=== PATIENT | male | born 1940 | race Caucasian/White ===

== ENCOUNTER 2019-01-21 11:11 | Emergency (ER) | payer OTHER ==
[2019-01-21 11:41] LABS: Absolute Lymphocytes (CBC) 1.3 K/uL (0.7-4.9); Absolute Monocytes 0.5 K/uL (0.1-1.3); Absolute Neutrophil 4.1 K/uL (1.8-8.0); Basophils % 1.4 % (0-1.3); Eosinophils % 3.8 % (0-4.4); Hematocrit 37.3 % (39.6-49.0); Lymphocytes % 21.1 % (15.3-44.8); MPV 8.6 fL (7.6-11.3); Monocytes % 7.9 % (3.3-12.3); RBC Red Blood Cell Count 4.11 M/uL (4.33-5.43)
[2019-01-21 11:42] LABS: Protime INR 1.09
--- NOTE | 2019-01-21 11:45 | RAD REPORT ---
EXAM DESCRIPTION: Fabian Single View01/21/2019 11:34 am CLINICAL HISTORY: Chest pain COMPARISON: 2011 FINDINGS: Small opacity within the left lung base may represent a small area of atelectasis Otherwise, the lungs appear clear. The heart is borderline enlarged
[2019-01-21 11:59] LABS: ALT/SGPT 18 U/L (12-78); AST/SGOT 20 U/L (15-37); Albumin 3.5 g/dL (3.4-5.0); Alkaline Phosphatase 49 U/L (45-117); BUN Blood Urea Nitrogen 27 mg/dL (7-18); Bicarbonate 26 mmol/L (21-32); Bilirubin Direct 0.2 mg/dL (0-0.2); Bilirubin Total 0.4 mg/dL (0.2-1.0); Glucose Level 104 mg/dL (74-106); NT PRO-BNP 502 pg/mL (<450); Potassium 4.4 mmol/L (3.5-5.1); Protein, Total 6.8 g/dL (6.4-8.2); Sodium Level 142 mmol/L (136-145); Troponin (Emerg Dept Use Only) < 0.02 ng/mL (0.0-0.045)
[2019-01-21] MEDS ORDERED: NA CHLORIDE 0.9% 1,000 ML ONE (12:19)
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
--- NOTE | 2019-01-21 13:38 | EDPHYS ---
Physician Documentation [facility] Name: Lambert Salvador Age: 78 yrs Sex: Male : 1940 Arrival Date: 01/21/2019 Time: 11:12 Bed 2 Private MD: Ed Feldman R ED Physician Jonathan Calvert HPI: 01/21 12:01 This 78 yrs old Male presents to ER via Ambulatory with complaints of Chest jr8 Pain. 12:01 The patient or guardian reports chest pain that is located primarily in the substernal jr8 area. Onset: acutely, today. The pain does not radiate. Associated signs and symptoms: Pertinent positives: dizziness, shortness of breath. The chest pain is described as a pressure. Duration: The patient or guardian reports a single episode, that lasted 5 second(s). Modifying factors: The symptoms are alleviated by nothing. the symptoms are aggravated by nothing. Severity of pain: At its worst the pain was moderate in the emergency department the pain has resolved. The patient has not experienced similar symptoms in the past. The patient has not recently seen a physician. Patient stated that while getting up from chair to go to kitchen, had sudden intense chest pressure that knocked him to the ground. Denies LOC. Stated that he became short of breath and dizzy. All symptoms now resolved. Stated that for the last several weeks noticed while walking that he feels very weak and has to rest . Historical: - Allergies: 11:25 Iodinated Contrast- Oral and IV Dye; hj 11:25 shellfish derived; hj - PMHx: 11:25 Hypertension; Diabetes - NIDDM; Hyperlipidemia; hj - PSHx: 11:25 Unable to obtain; hj - Immunization history:: Adult Immunizations up to date. - Social history:: Smoking status: Patient/guardian denies using tobacco. ROS: 12:01 Eyes: Negative for injury, pain, redness, and discharge, ENT: Negative for injury, jr8 pain, and discharge, Neck: Negative for injury, pain, and swelling, Abdomen/GI: Negative for abdominal pain, nausea, vomiting, diarrhea, and constipation, Back: Negative for injury and pain, MS/Extremity: Negative for injury and deformity, Skin: Negative for injury, rash, and discoloration. 12:01 Cardiovascular: Positive for chest pain, Negative for edema, orthopnea, palpitations, paroxysmal nocturnal dyspnea. 12:01 Respiratory: Positive for shortness of breath, Negative for cough, dyspnea on exertion, sputum production, wheezing. 12:01 Neuro: Positive for dizziness, weakness, Negative for gait disturbance, headache, numbness, speech changes, syncope, near syncope, tingling, visual changes. Exam: 12:01 Eyes: Pupils equal round and reactive to light, extra-ocular motions intact. Lids and jr8 lashes normal. Conjunctiva and sclera are non-icteric and not injected. Cornea within normal limits. Periorbital areas with no swelling, redness, or edema. ENT: Nares patent. No nasal discharge, no septal abnormalities noted. Tympanic membranes are normal and external auditory canals are clear. Oropharynx with no redness, swelling, or masses, exudates, or evidence of obstruction, uvula midline. Mucous membranes moist. Neck: Trachea midline, no thyromegaly or masses palpated, and no cervical lymphadenopathy. Supple, full range of motion without nuchal rigidity, or vertebral point tenderness. No Meningismus. Cardiovascular: Regular rate and rhythm with a normal S1 and S2. No gallops, murmurs, or rubs. Normal PMI, no JVD. No pulse deficits. Respiratory: Lungs have equal breath sounds bilaterally, clear to auscultation and percussion. No rales, rhonchi or wheezes noted. No increased work of breathing, no retractions or nasal flaring. Abdomen/GI: Soft, non-tender, with normal bowel sounds. No distension or tympany. No guarding or rebound. No evidence of tenderness throughout. Back: No spinal tenderness. No costovertebral tenderness. Full range of motion. Skin: Warm, dry with normal turgor. Normal color with no rashes, no lesions, and no evidence of cellulitis. MS/ Extremity: Pulses equal, no cyanosis. Neurovascular intact. Full, normal range of motion. Neuro: Awake and alert, GCS 15, oriented to person, place, time, and situation. Cranial nerves II-XII grossly intact. Motor strength 5/5 in all extremities. Sensory grossly intact. Cerebellar exam normal. Normal gait. 12:01 ECG was reviewed by the Attending Physician. Vital Signs: 11:25 Pulse 53; Resp 18; Temp 97.8(TE); Pulse Ox 98% on R/A; Weight 99.79 kg; Height 5 ft. 8 hj in. (172.72 cm); Pain 8/10; 11:34 BP 162 / 72; ss 11:34 BP 153 / 66 Sitting; Pulse 52; ss 11:34 BP 117 / 57 Standing; Pulse 52; ss 12:53 BP 106 / 58; Pulse 51; Resp 16; Pulse Ox 100% on R/A; Pain 0/10; ss 13:39 BP 170 / 59 Supine; Pulse 54; Resp 12; Pulse Ox 100% ; ms 13:39 BP 154 / 57 Standing; Pulse 52; Resp 16; Pulse Ox 98% on R/A; ms 11:25 Body Mass Index 33.45 (99.79 kg, 172.72 cm) hj [place] Coma Score: 11:34 Eye Response: spontaneous(4). Verbal Response: oriented(5). Motor Response: obeys ss commands(6). Total: 15. MDM: 11:15 Patient medically screened. jr8 13:36 Data reviewed: vital signs, nurses notes, lab test result(s), EKG, radiologic studies, jr8 plain films. Data interpreted: Pulse oximetry: on room air is 100 %. Interpretation: normal. Counseling: I had a detailed discussion with the patient and/or guardian regarding: the historical points, exam findings, and any diagnostic results supporting the discharge/admit diagnosis, lab results, radiology results, the need for outpatient follow up, a family practitioner, to return to the emergency department if symptoms worsen or persist or if there are any questions or concerns that arise at home. ED course: Discussed with patient that there are no findings on labs, imaging, and ECG to suggest acute cardiac episode. Compared his renal function labs to ones in past. Slightly worse but not acute for him. Recommend discontinuing his Metformin as this can worsen renal function at this level. 01/21 11:15 Order name: Basic Metabolic Panel; Complete Time: 12: 01/21 11:15 Order name: CBC with Diff; Complete Time: 12:23 01/21 11:15 Order name: LFT's; Complete Time: 12:00 01/21 11:15 Order name: Magnesium; Complete Time: 12:00 01/21 11:15 Order name: NT PRO-BNP; Complete Time: 12:00 01/21 11:15 Order name: PT-INR; Complete Time: 12:23 01/21 11:15 Order name: Troponin (emerg Dept Use Only); Complete Time: 12:00 01/21 11:15 Order name: XRAY Chest (1 view); Complete Time: 11:58 01/21 11:15 Order name: EKG; Complete Time: 11:16 01/21 11:15 Order name: Cardiac monitoring; Complete Time: :01/21 11:15 Order name: EKG - Nurse/Tech; Complete Time: :01/21 11:15 Order name: IV Saline Lock; Complete Time: 01/21 11:15 Order name: Labs collected and sent; Complete Time: 01/21 11:15 Order name: O2 Per Protocol; Complete Time: 01/21 11:15 Order name: O2 Sat Monitoring; Complete Time: EC:01 Rate is 51 beats/min. Rhythm is regular, 1st Degree Block. QRS [place] is Normal. [place] jr8 interval is prolonged at 296 msec. QRS interval is normal at 92 msec. QT interval is normal at 394 msec. Q waves are Present in leads V1, V2, V3. T waves are Normal. No ST changes noted. Clinical impression: 1st degree heart block. Interpreted by me. Reviewed by me. Administered Medications: 12:10 Drug: NS 0.9% 1000 ml Route: IV; Rate: 1000 ml; Site: right antecubital; ss 13:40 Follow up: IV Status: Completed infusion; IV Intake: 1000ml ss Disposition: 17:14 Co-signature as Attending Physician, Jonathan Calvert MD. ma2 Disposition: 01/21/19 13:37 Discharged to Home. Impression: Chest pain, unspecified. - Condition is Stable. - Discharge Instructions: Nonspecific Chest Pain. - Medication Reconciliation Form, Thank You Letter, Antibiotic Education, Prescription Opioid Use form. - Follow up: Ed Feldman MD; When: 2 - 3 days; Reason: Recheck today's complaints, Continuance of care, Re-evaluation by your physician. - Problem is new. - Symptoms have improved. - Notes: General Recommendation that patient discontinue Metformin and start on another type of oral diabetic medication due to patients renal function being above 1.50 Signatures: Dispatcher [employer] EDMS Michelle Mann RN RN ss Roszak, Josh, PA PA jr8 Jose A Palacios RN RN Jonathan Calvert MD MD ma2 Corrections: (The following items were deleted from the chart) 12:03 12:01 Neuro: Positive for dizziness, weakness, jr8 jr8 13:41 13:37 01/21/2019 13:37 Discharged to Home. Impression: Chest pain, unspecified. ss Condition is Stable. Forms are Medication Reconciliation Form, Thank You Letter, Antibiotic Education, Prescription Opioid Use. Follow up: Ed Feldman; When: 2 - 3 days; Reason: Recheck today's complaints, Continuance of care, Re-evaluation by your physician. Problem is new. Symptoms have improved. jr8
[2019-01-21 14:07] VITALS: TEMP 97.8
[2019-01-21 14:13] VITALS: BP 154/57; O2SAT 98
--- NOTE | 2019-01-22 10:31 | EKG ---
Test Date: 2019-01-21 Test Time: 11:22:24 Health And Social Care Teacher: BARBARA MEASUREMENT RESULTS: Intervals: Rate: 51 AK: 296 QRSD: 92 QT: 428 QTc: 394 [place]: P: 82 AK: 296 QRS: 42 T: 58 INTERPRETIVE STATEMENTS: Sinus bradycardia with 1st degree AV block Cannot rule out Anterior infarct, age undetermined Abnormal ECG Compared to ECG 04/10/2015 13:40:22 First degree AV block now present Myocardial infarct finding now present Accelerated junctional rhythm no longer present Electronically Signed On 01-22-19 10:28:30 CDT by Geo Han
== END 2019-01-21 13:41 | disposition home or self-care (01) ==
LOC: ER 11:11
DX: R07.9 Chest pain, unspecified (principal); Z91.013 Allergy to seafood; Z91.09 Other allergy status, other than to drugs and biological substances
CPT/HCPCS: 93005; 85025; 80048; 36415; 83735; 85610; 80076; 84484; 83880; 71045; 96360; 99285; J7030

== ENCOUNTER 2021-04-07 21:18 | Emergency (ER) | payer OTHER ==
--- OUTSIDE RECORDS SUMMARY | 2021-04-07 21:21 | XMS REPORT | Continuity of Care Document ---
:1940 Author Organization [facility] t Address [address] [place] [address] Care Team Providers Name Role Phone Rachel GONZALEZ, T Attending Clinician Unavailable Only, Test Attending Clinician Unavailable Problems This patient has no known problems. Allergies, Adverse Reactions, Alerts This patient has no known allergies or adverse reactions. Medications This patient has no known medications. Procedures This patient has no known procedures. Encounters Start End Encounter Admission Attending Care Care Encounter Source Date/Time Date/Time Type Type Clinicians Facility Department ID 2020-05-30 2020-05-30 Letter DENISE Ramos [id number] 00:00:00 00:00:00 (Out) Lori HALE [id number] [facility] [id number] 2020-05-29 2020-05-29 Laboratory Only, [facility] [id number] 14:12:26 14:25:21 Only Test [place] [id number] [place] [id number] [place] [id number] Results This patient has no known results.
[2021-04-07 21:38] LABS: Urine Blood 3+ (Negative); Urine Glucose Negative (Negative); Urine Protein Negative (Negative); Urine pH 5.5 (5.0-7.0)
[2021-04-07 22:03] LABS: Absolute Lymphocytes (CBC) 1.9 K/uL (0.7-4.9); Basophils % 0.6 % (0-1.3); Hematocrit 36.2 % (39.6-49.0); Lymphocytes % 25.1 % (15.3-44.8); MPV 8.8 fL (7.6-11.3); RBC Red Blood Cell Count 4.01 M/uL (4.33-5.43)
[2021-04-07] MEDS ORDERED: ONDANSETRON 4 MG/2 ML VIAL ONE (22:08)
[2021-04-07] MEDS ORDERED: MORPHINE 4 MG/ML SYR ONE ×2 (22:08→23:05)
[2021-04-07 22:12] LABS: Albumin 3.1 g/dL (3.4-5.0); Bilirubin Direct 0.2 mg/dL (0-0.2); Bilirubin Total 0.5 mg/dL (0.2-1.0); Protein, Total 6.3 g/dL (6.4-8.2)
[2021-04-07 22:16] LABS: Urine Bacteria <20 /HPF (NONE SEEN); Urine RBC 20-50 /HPF (NONE SEEN)
--- NOTE | 2021-04-08 00:16 | ER ---
Nurse's Notes [facility] Name: Lambert Salvador Age: 80 yrs Sex: Male : 1940 Arrival Date: 04/07/2021 Time: 21:22 Bed 18 Private MD: Ed Feldman R Diagnosis: Calculus of ureter Presentation: 04/07 21:27 Chief complaint: Patient states: R flank pain started Thursday. Reports urinary urgency ca1 and frequency. Denies HX of kidney stones. Coronavirus screen: Client denies travel out of the [place] in the last 14 days. At this time, the client does not indicate any symptoms associated with coronavirus-19. Ebola Screen: Patient negative for fever greater than or equal to 101.5 degrees Fahrenheit, and additional compatible Ebola Virus Disease symptoms Patient denies exposure to infectious person. Patient denies travel to an Ebola-affected area in the 21 days before illness onset. No symptoms or risks identified at this time. Initial Sepsis Screen: Does the patient meet any 2 criteria? No. Patient's initial sepsis screen is negative. Does the patient have a suspected source of infection? No. Patient's initial sepsis screen is negative. Risk Assessment: Do you want to hurt yourself or someone else? Patient reports no desire to harm self or others. Onset of symptoms was April 05, 2021. 21:27 Method Of Arrival: Ambulatory ca1 21:27 Acuity: KOMAL 3 ca1 Triage Assessment: 04/08 00:36 General: Behavior is calm, cooperative. ak2 Historical: - Allergies: 04/07 21:29 Iodinated Contrast- Oral and IV Dye; ca1 21:29 shellfish derived; ca1 - PMHx: 21:29 Diabetes - NIDDM; Hyperlipidemia; Hypertension; ca1 - Immunization history:: Client reports having NOT received the Covid vaccine. Flu vaccine is up to date. - Social history:: Smoking status: Patient denies any tobacco usage or history of. Screenin:18 Abuse screen: Denies threats or abuse. Denies injuries from another. Nutritional ak2 screening: No deficits noted. Tuberculosis screening: No symptoms or risk factors identified. Fall Risk None identified. Assessment: 23:18 General: Appears in no apparent distress. Pain: Complains of pain in back. Neuro: No ak2 deficits noted. Cardiovascular: No deficits noted. Respiratory: No deficits noted. Vital Signs: 21:27 BP 185 / 65; Pulse 57; Resp 18 S; Temp 97.5(TE); Pulse Ox 98% on R/A; Weight 88.45 kg ca1 (R); Height 5 ft. 8 in. (172.72 cm) (R); Pain 8/10; 23:19 BP 153 / 71; Pulse 65; Resp 18; Pulse Ox 99% on R/A; ak2 21:27 Body Mass Index 29.65 (88.45 kg, 172.72 cm) ca1 ED Course: 21:22 Patient arrived in ED. es 21:22 Ed Feldman MD is Private Physician. es 21:28 Triage completed. ca1 21:29 Juan Pablo Carmichael is Primary Nurse. ak2 21:29 Arm band placed on right wrist. ca1 21:38 Rich Alexandra NP is PHCP. pm1 21:38 Jose F Guadalupe MD is Attending Physician. pm1 22:08 CT Stone Protocol In Process Unspecified. EDMS 23:18 Patient has correct armband on for positive identification. ak2 23:19 No provider procedures requiring assistance completed. Inserted saline lock: 18 gauge ak2 in right forearm, using aseptic technique. 07 00:37 IV discontinued. ak2 Administered Medications: 04/07 21:50 Drug: NS 0.9% 500 ml Route: IV; Rate: bolus; Site: right antecubital; ak2 21:50 Drug: morphine 4 mg Route: IVP; Site: right antecubital; ak2 21:52 Follow up: Response: Pain is decreased ak2 21:50 Drug: Zofran (Ondansetron) 4 mg Route: IVP; Site: right antecubital; ak2 21:52 Follow up: Response: Nausea is decreased ak2 22:45 Drug: morphine 4 mg Route: IVP; Site: right antecubital; ak2 04/08 00:21 Drug: morphine 2 mg Route: IVP; Site: right antecubital; ak2 00:21 Drug: Flomax (tamsulosin) 0.4 mg Route: PO; ak2 Outcome: 00:16 Discharge ordered by . pm1 00:37 Discharged to home ambulatory, with family. ak2 00:37 Condition: good 00:37 Condition: good 00:37 Discharge instructions given to patient, family, Prescriptions given X 00:37 Patient left the ED. ak2 Signatures: Dispatcher [employer] Venecia Yusuf Patrick, NP COLLET DRILLER pm1 Rubi Valero RN RN ca1 Juan Pablo Carmichael ak2
--- NOTE | 2021-04-08 00:17 | EDPHYS ---
Physician Documentation [facility] Name: Lambert Salvador Age: 80 yrs Sex: Male : 1940 Arrival Date: 04/07/2021 Time: 21:22 Bed 18 Private MD: Ed Feldman R ED Physician Jose F Guadalupe HPI: 04/07 21:49 This 80 yrs old Male presents to ER via Ambulatory with complaints of Flank pm1 Pain. 21:49 The patient complains of pain in the right low back. The pain radiates to the right pm1 femoral area. Onset: The symptoms/episode began/occurred 2 day(s) ago. Modifying factors: The symptoms are alleviated by nothing. the symptoms are aggravated by nothing. Associated signs and symptoms: Pertinent negatives: diarrhea, dysuria, fever, nausea, vomiting. Severity of pain: in the emergency department the pain is unchanged. The patient has not experienced similar symptoms in the past. The patient has not recently seen a physician. Historical: - Allergies: 21:29 Iodinated Contrast- Oral and IV Dye; ca1 21:29 shellfish derived; ca1 - PMHx: 21:29 Diabetes - NIDDM; Hyperlipidemia; Hypertension; ca1 - Immunization history:: Client reports having NOT received the Covid vaccine. Flu vaccine is up to date. - Social history:: Smoking status: Patient denies any tobacco usage or history of. ROS: 21:49 Constitutional: Negative for fever, chills, and weight loss. pm1 21:49 Cardiovascular: Negative for chest pain, palpitations, and edema, Respiratory: Negative for shortness of breath, cough, wheezing, and pleuritic chest pain, Abdomen/GI: Negative for abdominal pain, nausea, vomiting, diarrhea, and constipation. 21:49 : Negative for injury, bleeding, discharge, and swelling, MS/Extremity: Negative for injury and deformity, Skin: Negative for injury, rash, and discoloration, Neuro: Negative for headache, weakness, numbness, tingling, and seizure. 21:49 Back: Positive for flank pain, on the right. 21:49 All other systems are negative. Exam: 21:49 Constitutional: This is a well developed, well nourished patient who is awake, alert, pm1 and in no acute distress. Head/Face: Normocephalic, atraumatic. 21:49 Abdomen/GI: Soft, non-tender, with normal bowel sounds. No distension or tympany. No guarding or rebound. No evidence of tenderness throughout. 21:49 Skin: Warm, dry with normal turgor. Normal color with no rashes, no lesions, and no evidence of cellulitis. MS/ Extremity: Pulses equal, no cyanosis. Neurovascular intact. Full, normal range of motion. 21:49 Eyes: Exam is negative for acute changes, Extraocular movements: no acute changes, Conjunctiva: no acute changes, no injection. 21:49 ENT: Mouth: Lips: normal, Oral mucosa: normal, pink and intact, moist. 21:49 Cardiovascular: Rate: normal, Rhythm: regular, Pulses: no pulse deficits are appreciated. 21:49 Respiratory: Exam negative for acute changes, respiratory distress, shortness of breath. 21:49 Back: CVA tenderness, that is mild, is noted on the right. 21:49 Neuro: Exam negative for acute changes, Orientation: is normal, Mentation: is normal, Motor: is normal, moves all fours. Vital Signs: 21:27 BP 185 / 65; Pulse 57; Resp 18 S; Temp 97.5(TE); Pulse Ox 98% on R/A; Weight 88.45 kg ca1 (R); Height 5 ft. 8 in. (172.72 cm) (R); Pain 8/10; 23:19 BP 153 / 71; Pulse 65; Resp 18; Pulse Ox 99% on R/A; ak2 21:27 Body Mass Index 29.65 (88.45 kg, 172.72 cm) ca1 MDM: 21:39 Patient medically screened. pm1 04/08 00:14 Data reviewed: vital signs. Data interpreted: Pulse oximetry: on room air is 99 %. pm1 Interpretation: normal. 00:14 Counseling: I had a detailed discussion with the patient and/or guardian regarding: the pm1 historical points, exam findings, and any diagnostic results supporting the discharge/admit diagnosis, lab results, radiology results, the need for outpatient follow up, a urologist, to return to the emergency department if symptoms worsen or persist or if there are any questions or concerns that arise at home. 04/07 21:38 Order name: Urine Dipstick-Ancillary; Complete Time: 21:43 EDMS 04/07 21:38 Order name: Urine Microscopic Only; Complete Time: 22:34 pm1 04/07 21:39 Order name: Basic Metabolic Panel pm1 04/07 21:39 Order name: CBC with Diff; Complete Time: 22:42 pm1 04/07 21:39 Order name: Hepatic Function; Complete Time: 22:42 pm1 04/07 21:39 Order name: Lipase; Complete Time: 22:42 pm1 04/07 21:39 Order name: CT Stone Protocol pm1 04/07 21:40 Order name: Basic Metabolic Panel; Complete Time: 22:42 EDMS 04/07 21:39 Order name: IV Saline Lock pm1 04/07 21:39 Order name: Labs collected and sent pm1 Administered Medications: 04/07 21:50 Drug: NS 0.9% 500 ml Route: IV; Rate: bolus; Site: right antecubital; ak2 21:50 Drug: morphine 4 mg Route: IVP; Site: right antecubital; ak2 21:52 Follow up: Response: Pain is decreased ak2 21:50 Drug: Zofran (Ondansetron) 4 mg Route: IVP; Site: right antecubital; ak2 21:52 Follow up: Response: Nausea is decreased ak2 22:45 Drug: morphine 4 mg Route: IVP; Site: right antecubital; ak2 04/08 00:21 Drug: morphine 2 mg Route: IVP; Site: right antecubital; ak2 00:21 Drug: Flomax (tamsulosin) 0.4 mg Route: PO; ak2 Disposition: 06:08 Co-signature as Attending Physician, Jose F Guadalupe MD. [email or web address] Disposition Summary: 04/08/21 00:16 Discharge Ordered Location: Home pm1 Problem: new pm1 Symptoms: have improved pm1 Condition: Stable pm1 Diagnosis - Calculus of ureter pm1 Followup: pm1 - With: Emergency Department - When: As needed - Reason: Worsening of condition Followup: pm1 - With: Private Physician - When: 2 - 3 days - Reason: Recheck today's complaints, Continuance of care, Re-evaluation by your physician Discharge Instructions: - Discharge Summary Sheet pm1 - Kidney Stones pm1 - Dietary Guidelines to Help Prevent Kidney Stones pm1 Forms: - Medication Reconciliation Form pm1 - Thank You Letter pm1 - Antibiotic Education pm1 - Prescription Opioid Use pm1 Prescriptions: - Tramadol 50 mg Oral Tablet - take 1 tablet by ORAL route every 8 hours as needed; 12 tablet; Refills: 0, pm1 Product Selection Permitted - Flomax 0.4 mg Oral capsule - take 1 capsule by ORAL route once daily for 10 days 1/2 hour following the same pm1 meal each day; 10 capsule; Refills: 0, Product Selection Permitted Signatures: Dispatcher [employer] EDSamir Love, JUSTIN-C SKEIN SPOOLER-Cla1 Rich Alexandra, DEBI RISK OFFICER pm1 Rubi Valero RN RN ca1 Jose F Guadalupe MD MD [facility] Juan Pablo Carmichael la2
[2021-04-08] MEDS ORDERED: MORPHINE 2 MG/ML SYR ONE (00:36)
[2021-04-08] MEDS ORDERED: TAMSULOSIN 0.4 MG SR CAP ONE (00:36)
[2021-04-08 00:53] VITALS: TEMP 97.5
[2021-04-08 00:54] VITALS: BP 153/71; O2SAT 99
--- NOTE | 2021-04-08 12:16 | RAD REPORT ---
EXAM DESCRIPTION: CT ABDOMEN AND PELVIS WITHOUT CONTRAST CLINICAL HISTORY: FLANK PAIN COMPARISON: None Available. TECHNIQUE: CT of the abdomen and pelvis without IV contrast. Evaluation of the solid organs and vasc ulature is suboptimal due to lack of IV contrast. This exam was performed according to our department al dose-optimization program, which includes automated exposure control, adjustment of the mA and/or kV according to patient size and/or use of iterative reconstruction technique. FINDINGS: Lung Bases: The visualized lung bases are clear. Coronary artery atherosclerosis. Bones: Multilevel endplate spondylosis and facet arthropathy. Chronic appearing compression deformity of L1. Abdomen: Liver: The liver has normal size and density. Gallbladder: Prior cholecystectomy. Spleen, Pancreas, and Adrenal Glands: The spleen, pancreas, and adrenal glands are unremarkable. Kidneys: There is a 0.3 cm obstructing calculus in the distal right ureter producing mild right hydro ureter and hydronephrosis. 4.0 cm inferior pole right renal cyst. Vasculature: Aortoiliac atherosclerosis. IVC is unremarkable. Stomach: The stomach and duodenum have normal course. Other: No free intraperitoneal air. No free fluid or lymphadenopathy. Pelvis: Bladder: Urinary bladder is unremarkable. Bowel: No dilated loops of large or small bowel. Scattered diverticula of the colon. Appendix: Normal appendix. Pelvis: Prostate is not enlarged. IMPRESSION: 1. There is a 0.3 cm obstructing calculus in the distal right ureter producing mild ri ght hydroureter and hydronephrosis. 2. Diverticulosis without evidence of acute diverticulitis. Electronically signed by: Lamine Patiño 04/07/2021 10:41 PM CDT Due to temporary technical issues with the PACS/Fluency reporting system, reports are being signed by the in house radiologist without review as a courtesy to ensure prompt reporting. The interpreting r adiologist is fully responsible for the content of the report.
== END 2021-04-08 00:37 | disposition home or self-care (01) ==
LOC: ER 21:18
DX: N20.1 Calculus of ureter (principal); I10 Essential (primary) hypertension; Z91.013 Allergy to seafood; Z91.041 Radiographic dye allergy status
CPT/HCPCS: 85025; 80048; 36415; 80076; 83690; 76377; 74176; 96375; 96374; 99284; J2270; J2405; 81003; 81015

== ENCOUNTER 2021-09-24 22:07 | Emergency (ER) | payer OTHER ==
--- OUTSIDE RECORDS SUMMARY | 2021-09-24 22:10 | XMS REPORT | Continuity of Care Document ---
:1940 Author Organization [facility] t Address [address] [place] [address] Care Team Providers Name Role Phone Rachel GONZALEZ, T Attending Clinician Unavailable ALAYNA Attending Clinician Unavailable Only, Test Attending Clinician Unavailable Alayna SMITH Attending Clinician Doctor Unassigned, Name Attending Clinician Unavailable Payers Payer Name Policy Type Policy Number Effective Date Expiration Date S ource Problems Condition Condition Condition Status Onset Resolution Last Treating Co mments Source Name Details Category Date Date Treatment Clinician Date Chest pain Chest pain Disease Active U nivers 10-05 ity of 00:00: [place] 00 [facility] Allergies, Adverse Reactions, Alerts Allergy Allergy Status Severity Reaction(s) Onset Inactive Treating Comm ents Source Name Type Date Date Clinician Iodine Propensi Active Rash Univers ty to 3 ity of adverse 00:00: [place] reaction 00 Medical s to Branch drug Penicill Propensi Active Rash Univer s ins ty to 11-26 ity of adverse 00:00: [place] reaction 00 Medical s to Branch drug IODINE DRUG Active Med Rash Univers INGREDI 3- ity of 00:00: [place] 00 Medical Branch PENICILL Drug Active Med Rash Univers INS Class 3- ity of 00:00: [place] 00 Medical [place] Social History Social Habit Start Date Stop Date Quantity Comments Source Sex Assigned At Universit y of [facility] Exposure to Not sure University of SARS-CoV-2 [facility] (event) Branch Tobacco use and 2017-10-05 2017-10-05 Never used Universit y of exposure 00:00:00 00:00:00 [facility] Alcohol intake 2017-10-05 2017-10-05 Current University of 00:00:00 00:00:[address] non-drinker of [facility] alcohol Branch (finding) Smoking Status Start Date Stop Date Source Never smoker [facility] Medical Branch Medications Ordered Filled Start Stop Current Ordering Indication Dosage Frequency Signature Comments Components Source Medication Medication Date Date Medication? Clinician (SIG) Name Name gemfibrozil Yes 600mg Take 600 U nivers (LOPID) 600 1-09 mg by ity of mg tablet 22:46: mouth 2 [place] [address] (two) Medical times Branch daily. simvastatin Yes 10mg Take 10 mg Univers (ZOCOR) 10 1-09 by mouth ity o f mg tablet 22:46: daily. [place] [address] Medical Branch metformin Yes 500mg Take 500 Uni vers ER 1-09 mg by ity of (GLUCOPHAGE 22:46: mouth [place] -XR) 500 mg 37 daily. Medica l 24 hr Branch tablet metoprolol Yes 25mg Take 25 mg U nivers succinate 1-09 by mouth ity of XL (TOPROL 22:46: daily. [place] XL) 25 mg 37 Medical 24 hr Branch tablet aspirin 81 Yes 81mg Take 81 mg U nivers mg EC 1-09 by mouth ity of tablet 22:46: daily. [address] Branch LORazepam Yes 1mg Take 1 mg Uni vers (ATIVAN) 1 1-09 by mouth 3 ity of mg tablet 22:46: (three) [place] [address] times Medical daily. Branch buPROPion Yes 300mg Take 300 Uni vers XL 1-09 mg by ity of (WELLBUTRIN 22:46: mouth [place] XL) 300 mg 37 daily. Medical 24 hr Branch tablet fenofibrate Yes 145mg Take 145 U nivers 145 mg 1-09 mg by ity of tablet 22:46: mouth [place] 37 daily. Medical Branch meclizine Yes 32mg Take 32 mg Un zuri 25 mg 1-09 by mouth ity of tablet 22:46: daily. [address] Branch tamsulosin Yes .4mg Take 0.4 Uni vers 0.4 mg 24 1-09 mg by ity of hr capsule 22:46: mouth [place] 37 daily. Medical Branch gemfibrozil Yes 600mg Take 600 U nivers (LOPID) 600 1-09 mg by ity of mg tablet 22:46: mouth 2 [place] [address] (two) Medical times Branch daily. simvastatin 2018-0 Yes 10mg Take 10 mg Univers (ZOCOR) 10 1-09 by mouth ity o f mg tablet 22:46: daily. [place] [address] Medical Branch metformin 2018-0 Yes 500mg Take 500 Uni vers ER 1-09 mg by ity of (GLUCOPHAGE 22:46: mouth [place] -XR) 500 mg 37 daily. Medica l 24 hr Branch tablet metoprolol 2018-0 Yes 25mg Take 25 mg U nivers succinate 1-09 by mouth ity of XL (TOPROL 22:46: daily. [place] XL) 25 mg 37 Medical 24 hr Branch tablet aspirin 81 2018-0 Yes 81mg Take 81 mg U nivers mg EC 1-09 by mouth ity of tablet 22:46: daily. [place] [address] Medical Branch LORazepam 2017-0 Yes 1mg Take 1 mg Uni vers (ATIVAN) 1 1-09 by mouth 3 ity of mg tablet 22:46: (three) [place] [address] times [facility] daily. Branch buPROPion 0 Yes 300mg Take 300 Uni vers XL 1-09 mg by ity of (WELLBUTRIN 22:46: mouth [place] XL) 300 mg 37 daily. Medical 24 hr Branch tablet fenofibrate 2017-0 Yes 145mg Take 145 U nivers 145 mg 1-09 mg by ity of tablet 22:46: mouth [place] daily. Medical Branch meclizine 0 Yes 32mg Take 32 mg Un zuri 25 mg 1-09 by mouth ity of tablet 22:46: daily. [address] Branch tamsulosin 2018-0 Yes .4mg Take 0.4 Uni vers 0.4 mg 24 1-09 mg by ity of hr capsule 22:46: mouth [place] daily. Medical Branch gemfibrozil 2018-0 Yes 600mg Take 600 U nivers (LOPID) 600 1-09 mg by ity of mg tablet 22:46: mouth 2 [place] [address] (two) Medical times [place] daily. simvastatin 2018-0 Yes 10mg Take 10 mg Univers (ZOCOR) 10 1-09 by mouth ity o f mg tablet 22:46: daily. [address] Branch metformin 2017-0 Yes 500mg Take 500 Uni vers ER 1-09 mg by ity of (GLUCOPHAGE 22:46: mouth [place] -XR) 500 mg 37 daily. Medica l 24 hr Branch tablet metoprolol 2018-0 Yes 25mg Take 25 mg U nivers succinate 1-09 by mouth ity of XL (TOPROL 22:46: daily. [place] XL) 25 mg 37 Medical 24 hr Branch tablet aspirin 81 2017-0 Yes 81mg Take 81 mg U nivers mg EC 1-09 by mouth ity of tablet 22:46: daily. [place] [address] Medical Branch LORazepam 2018-0 Yes 1mg Take 1 mg Uni vers (ATIVAN) 1 1-09 by mouth 3 ity of mg tablet 22:46: (three) [place] 37 times Medical daily. Branch buPROPion 0 Yes 300mg Take 300 Uni vers XL 1-09 mg by ity of (WELLBUTRIN 22:46: mouth [place] XL) 300 mg 37 daily. Medical 24 hr Branch tablet fenofibrate 0 Yes 145mg Take 145 U nivers 145 mg 1-09 mg by ity of tablet 22:46: mouth [place] 37 daily. Medical Branch meclizine Yes 32mg Take 32 mg Un zuri 25 mg 1-09 by mouth ity of tablet 22:46: daily. [place] [address] Medical Branch tamsulosin 2017-0 Yes .4mg Take 0.4 Uni vers 0.4 mg 24 1-09 mg by ity of hr capsule 22:46: mouth [place] 37 daily. Medical Branch gemfibrozil 0 Yes 600mg Take 600 U nivers (LOPID) 600 1-09 mg by ity of mg tablet 22:46: mouth 2 [place] [address] (two) Medical times Branch daily. simvastatin 2018-0 Yes 10mg Take 10 mg Univers (ZOCOR) 10 1-09 by mouth ity o f mg tablet 22:46: daily. [place] [address] Medical Branch metformin 2018-0 Yes 500mg Take 500 Uni vers ER 1-09 mg by ity of (GLUCOPHAGE 22:46: mouth [place] -XR) 500 mg 37 daily. Medica l 24 hr Branch tablet metoprolol 2018-0 Yes 25mg Take 25 mg U nivers succinate 1-09 by mouth ity of XL (TOPROL 22:46: daily. [place] XL) 25 mg 37 Medical 24 hr Branch tablet aspirin 81 2017-0 Yes 81mg Take 81 mg U nivers mg EC 1-09 by mouth ity of tablet 22:46: daily. [place] [address] Medical Branch LORazepam Yes 1mg Take 1 mg Uni vers (ATIVAN) 1 1-09 by mouth 3 ity of mg tablet 22:46: (three) [place] 37 times Medical daily. Branch buPROPion Yes 300mg Take 300 Uni vers XL 1-09 mg by ity of (WELLBUTRIN 22:46: mouth [place] XL) 300 mg 37 daily. Medical 24 hr Branch tablet fenofibrate Yes 145mg Take 145 U nivers 145 mg 1-09 mg by ity of tablet 22:46: mouth [place] 37 daily. Medical Branch meclizine Yes 32mg Take 32 mg Un zuri 25 mg 1-09 by mouth ity of tablet 22:46: daily. [address] Branch tamsulosin Yes .4mg Take 0.4 Uni vers 0.4 mg 24 1-09 mg by ity of hr capsule 22:46: mouth [place] 37 daily. Medical Branch Immunizations Ordered Filled Immunization Date Status Comments Sour e Immunization Name Name Influenza Virus 2017-08-28 Completed Universit y of Vaccine 00:00:00 [facility] Influenza Virus 2017-08-28 Completed Universit y of Vaccine 00:00:00 [facility] Influenza Virus 2017-08-28 Completed Universit y of Vaccine 00:00:00 [facility] Influenza Virus 2017-08-28 Completed Universit y of Vaccine 00:00:00 [facility] Pneumococcal 2016-09-28 Completed University o f Polysaccharide, 00:00:00 [place] Med ical PPSV23 (PNEUMOVAX) Branch Pneumococcal 2016-09-28 Completed University o f Polysaccharide, 00:00:00 [place] Med ical PPSV23 (PNEUMOVAX) Branch Pneumococcal 2016-09-28 Completed University o f Polysaccharide, 00:00:00 [place] Med ical PPSV23 (PNEUMOVAX) Branch Pneumococcal 2016-09-28 Completed University o f Polysaccharide, 00:00:00 [place] Med ical PPSV23 (PNEUMOVAX) Branch Procedures Procedure Date / Time Performed Performing Clinician Sour e ASSIGNMENT OF BENEFITS 2020-05-29 19:12:53 Doctor Unassigned, No [facility] Name Medical Branch Encounters Start End Encounter Admission Attending Care Care Encounter Source Date/Time Date/Time Type Type Clinicians Facility Department ID 2020-05-30 2020-05-30 Letter DENISE Ramos [id number] Univers 00:00:00 00:00:00 (Out) Lori HALE [id number] it y of [facility] [id number] [place] [id number] [facility] 019 Branch 2020-05-30 2020-05-30 Letter DENISE Ramos [id number] 00:00:00 00:00:00 (Out) Lori HALE [id number] [facility] [id number] 2020-05-29 2020-05-29 Outpatient R HAYDEN CATALAN [facility] [id number] Univers 14:45:00 14:45:[address] [facility] 2020-05-29 2020-05-29 Laboratory Only, [facility] Test [facility] [id number]. [id number] Univers 14:12:26 14:25:21 Only Hayden Catalan [id number] ity of [place] [id number] [facility] [id number] [facility] 353 Branch 2020-05-29 2020-05-29 [facility] [id number] 14:12:26 14:25:21 Only Test Liane [id number] [place] [id number] [place] [id number] 2020-05-29 2020-05-29 Orders Doctor DENISE [id number] Univers 00:00:00 00:00:00 Only Unassigned, ALEXIA [id number] ity of [place] [facility] [id number] [place] [id number] [facility] 009 Branch Results This patient has no known results.
--- NOTE | 2021-09-25 02:18 | EDPHYS ---
Physician Documentation [facility] Name: Lambert Salvador Age: 81 yrs Sex: Male : 1940 Arrival Date: 09/24/2021 Time: 22:13 Bed 12 Private MD: ED Physician Jose F Guadalupe HPI: 09/25 00:20 This 81 yrs old Male presents to ER via Wheelchair with complaints of ankle swelling. kb 00:20 The patient presents with swelling. The complaints affect the anterior aspect of right kb ankle and dorsum of right foot. Onset: The symptoms/episode began/occurred 3 day(s) ago. Context: The problem was sustained at home, resulted from the patient falling, The patient can fully bear weight on the affected extremity. the patient is able to ambulate. Associated signs and symptoms: Pertinent positives: swelling, Pertinent negatives: calf tenderness, fever, nausea, numbness, rash, tingling, vomiting, warmth, weakness. Modifying factors: The symptoms are alleviated by nothing, the symptoms are aggravated by nothing. Severity of symptoms: At their worst the symptoms were moderate, in the emergency department the symptoms are unchanged. The patient has not experienced similar symptoms in the past. The patient has not recently seen a physician. 00:22 Family states pt fell on and developed swelling to right ankle and foot kb the next day. . Historical: - Allergies: 09/24 23:16 Iodinated Contrast- Oral and IV Dye; bb 23:16 PENICILLINS; bb 23:16 shellfish derived; bb - Home Meds: 23:16 bupropion HCl 300 mg Oral Tb24 1 tab once daily [Active]; fenofibrate 150 mg Oral cap 1 bb cap once daily [Active]; furosemide 20 mg Oral tab 1 tab once daily [Active]; metoprolol tartrate 50 mg Oral tab 1 tab 2 times per day [Active]; omeprazole 40 mg Oral cpDR 1 cap once daily [Active]; simvastatin 40 mg/5 mL (8 mg/mL) Oral susp 2.5 mL once daily [Active]; tamsulosin 0.4 mg Oral cap 1 cap once daily [Active]; - PMHx: 23:16 Diabetes - NIDDM; Hyperlipidemia; Hypertension; bb - PSHx: 23:16 Cholecystectomy; bb - Immunization history:: Client reports receiving the 2nd dose of the Covid vaccine, CITTIO. - Social history:: Smoking status: Patient denies any tobacco usage or history of. ROS: 09/25 00:22 Constitutional: Negative for fever, chills, and weight loss. kb MS/extremity: Positive for swelling, of the dorsum of right foot and anterior aspect of right ankle. All other systems are negative. Exam: 00:22 Constitutional: This is a well developed, well nourished patient who is awake, alert, kb and in no acute distress. ENT: Moist Mucous membranes Respiratory: Respirations even and unlabored. No increased work of breathing. Talking in full sentences Skin: Warm, dry with normal turgor. Normal color. Neuro: Awake and alert, GCS 15, oriented to person, place, time, and situation. Moves all extremities. Normal gait. Psych: Awake, alert, with orientation to person, place and time. Behavior, mood, and affect are within normal limits. 00:22 Musculoskeletal/extremity: Extremities: grossly normal except: noted in the dorsum of right foot and anterior aspect of right ankle: swelling, ROM: intact in all extremities, Circulation is intact in all extremities. Sensation intact. Weight bearing: able to fully bear weight. Vital Signs: 09/24 23:12 BP 170 / 68; Pulse 59; Resp 16 S; Temp 98.8(TE); Pulse Ox 98% on R/A; Weight 92.99 kg bb (R); Height 5 ft. 8 in. (172.72 cm) (R); Pain 0/10; 09/25 02:25 BP 190 / 71; Pulse 62; Resp 16 S; Temp 97.7(TE); Pulse Ox 98% on R/A; bb 09/24 23:12 Body Mass Index 31.17 (92.99 kg, 172.72 cm) bb MDM: 09/24 23:16 Patient medically screened. kb 09/25 00:23 Data reviewed: vital signs, nurses notes. Data interpreted: Pulse oximetry: on room air kb is 98 %. Interpretation: normal. 01:43 Counseling: I had a detailed discussion with the patient and/or guardian regarding: the kb historical points, exam findings, and any diagnostic results supporting the discharge/admit diagnosis, radiology results, the need for outpatient follow up, a family practitioner, to return to the emergency department if symptoms worsen or persist or if there are any questions or concerns that arise at home. 09/24 23:16 Order name: Ankle Right 3 View XRAY kb 09/24 23:16 Order name: Foot Right 3 View XRAY kb 09/24 23:16 Order name: US Extremity Venous Unilateral Ltd kb 09/24 23:16 Order name: US Lower Extremity Artery Uni Ltd kb Administered Medications: No medications were administered Disposition: 04:05 Co-signature as Attending Physician, Jose F Guadalupe MD. [email or web address] Disposition Summary: 09/25/21 02:18 Discharge Ordered Location: Home kb Condition: Stable kb Diagnosis - Sprain of ankle kb Followup: kb - With: Emergency Department - When: As needed - Reason: Worsening of condition Followup: kb - With: Private Physician - When: 2 - 3 days - Reason: Recheck today's complaints, Continuance of care, Re-evaluation by your physician Discharge Instructions: - Discharge Summary Sheet kb - Ankle Sprain, [id number] kb Forms: - Medication Reconciliation Form kb - Thank You Letter kb - Antibiotic Education kb - Prescription Opioid Use kb Signatures: Dispatcher [employer] Hallie Ingram, ART EDUCATOR-C ART EDUCATOR-Michelle Chaney, RN RN Jose F Chisholm MD MD [email or web address]
--- NOTE | 2021-09-25 02:18 | ER ---
Nurse's Notes [facility] Name: Lambert Salvador Age: 81 yrs Sex: Male : 1940 Arrival Date: 09/24/2021 Time: 22:13 Bed 12 Private MD: Diagnosis: Sprain of ankle Presentation: 09/24 23:12 Chief complaint: Patient's son or daughter states: pt was here for a fall bb injury and now his right ankle is swollen pt denies pain to right ankle. Coronavirus screen: At this time, the client does not indicate any symptoms associated with coronavirus-19. Ebola Screen: No symptoms or risks identified at this time. Initial Sepsis Screen: Does the patient meet any 2 criteria? No. Patient's initial sepsis screen is negative. Does the patient have a suspected source of infection? No. Patient's initial sepsis screen is negative. Risk Assessment: Do you want to hurt yourself or someone else? Patient reports no desire to harm self or others. Onset of symptoms was September 22, 2021. 23:12 Method Of Arrival: Wheelchair bb 23:12 Acuity: KOMAL 4 bb Triage Assessment: 23:16 General: Appears in no apparent distress. uncomfortable, Behavior is calm, cooperative. bb Pain: Denies pain. Neuro: Level of Consciousness is awake, alert, obeys commands, Oriented to person, place, time, situation. Cardiovascular: Capillary refill < 3 seconds Patient's skin is warm and dry. Respiratory: Respiratory effort is even, unlabored. GI: No signs and/or symptoms were reported involving the gastrointestinal system. Derm: Skin is pink, warm \T\ dry. Bruising that is to face. Musculoskeletal: Circulation, motion, and sensation intact. Reports swelling in right ankle. Historical: - Allergies: 23:16 Iodinated Contrast- Oral and IV Dye; bb 23:16 PENICILLINS; bb 23:16 shellfish derived; bb - Home Meds: 23:16 bupropion HCl 300 mg Oral Tb24 1 tab once daily [Active]; fenofibrate 150 mg Oral cap 1 bb cap once daily [Active]; furosemide 20 mg Oral tab 1 tab once daily [Active]; metoprolol tartrate 50 mg Oral tab 1 tab 2 times per day [Active]; omeprazole 40 mg Oral cpDR 1 cap once daily [Active]; simvastatin 40 mg/5 mL (8 mg/mL) Oral susp 2.5 mL once daily [Active]; tamsulosin 0.4 mg Oral cap 1 cap once daily [Active]; - PMHx: 23:16 Diabetes - NIDDM; Hyperlipidemia; Hypertension; bb - PSHx: 23:16 Cholecystectomy; bb - Immunization history:: Client reports receiving the 2nd dose of the Covid vaccine, Pfizer. - Social history:: Smoking status: Patient denies any tobacco usage or history of. Screenin/29 00:30 Abuse screen: Denies threats or abuse. Nutritional screening: No deficits noted. bb Tuberculosis screening: No symptoms or risk factors identified. Fall Risk None identified. Assessment: 00:30 Reassessment: No changes from previously documented assessment. Patient is alert, bb oriented x 3, equal unlabored respirations, skin warm/dry/pink. see triage assessment. 01:30 Reassessment: Patient is alert, oriented x 3, equal unlabored respirations, skin bb warm/dry/pink. awaiting diagnostic results, family at bedside. Vital Signs: 09/24 23:12 BP 170 / 68; Pulse 59; Resp 16 S; Temp 98.8(TE); Pulse Ox 98% on R/A; Weight 92.99 kg bb (R); Height 5 ft. 8 in. (172.72 cm) (R); Pain 0/10; 09/25 02:25 BP 190 / 71; Pulse 62; Resp 16 S; Temp 97.7(TE); Pulse Ox 98% on R/A; bb 09/24 23:12 Body Mass Index 31.17 (92.99 kg, 172.72 cm) bb ED Course: 09/24 22:13 Patient arrived in ED. wm 23:15 Hallie Mem[facility]ren[facility]-C [facility]. kb 23:15 Jose F Guadalupe MD is Attending Physician. kb 23:16 Triage completed. bb 23:16 Arm band placed on Patient placed in waiting room, Patient notified of wait time. X-ray bb ordered. US ordered. 23:51 US Extremity Venous Unilateral Ltd In Process Unspecified. EDMS 23:52 US Lower Extremity Artery Uni Ltd In Process Unspecified. EDMS 09/25 00:19 Ankle Right 3 View XRAY In Process Unspecified. EDMS 00:19 Foot Right 3 View XRAY In Process Unspecified. EDMS 00:30 Patient has correct armband on for positive identification. Call light in reach. Adult bb w/ patient. 02:31 No provider procedures requiring assistance completed. Patient did not have IV access bb during this emergency room visit. Administered Medications: No medications were administered Outcome: 02:18 Discharge ordered by . lyssa 02:31 Discharged to home via wheelchair, with family. bb 02:31 Condition: stable 02:31 Discharge instructions given to patient, Instructed on discharge instructions, follow up and referral plans. Demonstrated understanding of instructions, follow-up care. 02:31 Patient left the ED. bb Signatures: Dispatcher [employer] EDHallie Santos, JUSTIN-Dayanara ANDERSON-Michelle Chaney, CARLOS RN Vickie Oneill
[2021-09-25 02:35] VITALS: BP 170/68; TEMP 98.8; O2SAT 98
--- NOTE | 2021-09-25 07:16 | RAD REPORT ---
EXAM DESCRIPTION: US - Extremity Venous Uni Ltd - 09/24/2021 11:52 pm CLINICAL HISTORY: SWELLING Preliminary findings provided at the time of the study. COMPARISON: None. TECHNIQUE: Real-time sonographic evaluation of the right lower extremity deep venous systems was per formed. FINDINGS: Normal compressibility, flow augmentation, phasic flow and spontaneous flow are identified in the right lower extremity common femoral, superficial femoral, popliteal and posterior tibial vei ns. No intraluminal filling defects seen. IMPRESSION: No DVT in the right lower extremity.
--- NOTE | 2021-09-25 07:17 | RAD REPORT ---
EXAM DESCRIPTION: US - Lower Extremity Artery Uni Ltd - 09/24/2021 11:52 pm CLINICAL HISTORY: SWELLING COMPARISON: No comparisons TECHNIQUE: Doppler evaluation of the right leg arterial tree performed. Waveforms and velocity value s were obtained along with visual inspection. FINDINGS: Biphasic waveform pattern observed along the entire length of the right lower extremity. A therosclerotic calcifications are seen in the duran of the vessels. No occlusion or focal flow restri cting lesion identified. IMPRESSION: No occlusion or focal flow restricting lesion identified.
--- NOTE | 2021-09-25 15:26 | RAD REPORT ---
EXAM DESCRIPTION: RAD - Ankle Right 3 View - 09/25/2021 12:19 am CLINICAL HISTORY: The patient is 81 years old and is Male; PAIN TECHNIQUE: Frontal, lateral and oblique views of the right ankle. COMPARISON: No relevant prior studies available. FINDINGS: BONES/JOINTS: Degenerative change the bones of the ankle joint space narrowing and scler osis is present. There is no acute fracture. No dislocation. SOFT TISSUES: Diffuse soft tissue swelling about the ankle is noted. VASCULATURE: Atherosclerosis of the vasculature is present. IMPRESSION: Diffuse soft tissue swelling about the ankle is noted. No underlying acute bony abnorm ality. Electronically signed by: Jackeline Harp MD 09/25/2021 2:02 AM GUARD LIEUTENANT Due to temporary technical issues with the PACS/Fluency reporting system, reports are being signed by the in house radiologists without review as a courtesy to insure prompt reporting. The interpreting radiologist is fully responsible for the content of the report.
--- NOTE | 2021-09-25 15:30 | RAD REPORT ---
EXAM DESCRIPTION: RAD - Foot Right 3 View - 09/25/2021 12:19 am CLINICAL HISTORY: 81 years Male, PAIN COMPARISON: None. FINDINGS: No evidence of an acute fracture of the right foot. No dislocation. Degenerative changes n oted. Vascular calcifications are present. IMPRESSION: No evidence for an acute fracture of the right foot. Electronically signed by: Rodney Edwards MD 09/25/2021 2:11 AM SR COMMUNITY MANAGER Due to temporary technical issues with the PACS/Fluency reporting system, reports are being signed by the in house radiologists without review as a courtesy to insure prompt reporting. The interpreting radiologist is fully responsible for the content of the report.
== END 2021-09-25 02:31 | disposition home or self-care (01) ==
LOC: ER 22:07
DX: S93.401A Sprain of unspecified ligament of right ankle, initial encounter (principal); W19.XXXA Unspecified fall, initial encounter; Y93.9 Activity, unspecified; Y92.9 Unspecified place or not applicable; Z88.0 Allergy status to penicillin; Z91.09 Other allergy status, other than to drugs and biological substances; Z91.013 Allergy to seafood; E11.9 Type 2 diabetes mellitus without complications; E78.5 Hyperlipidemia, unspecified; I10 Essential (primary) hypertension
CPT/HCPCS: 93926; 93971; 99283